=== PATIENT | female | born 2000 | race Hispanic/Latino ===

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

== ENCOUNTER 2018-12-11 10:17 | Day surgery (SDC) | payer OTHER ==
[2018-12-10 14:21] VITALS: BMI 23.6
[2018-12-11 11:12] LABS: Hemoglobin 12.9 g/dL (12.0-16.0); Mean Corpuscular HGB CONC 34.3 g/dL (32.0-36.0); Mean Corpuscular Hemoglobin 29.4 pg (25.0-35.0); Mean Corpuscular Volume 85.7 fL (78.0-98.0); Mean Platelet Volume 7.7 fL (7.4-10.4); Platelet Count 270 thou/uL (130-400); RBC Distribution Width 12.7 % (11.5-14.5); White Blood Cell (WBC) Count 7.8 thou/uL (4.8-10.8)
[2018-12-11] MEDS ORDERED: Doxycycline Hyclate 100 MG VIAL IVPB SCH (12:00)
[2018-12-11] MEDS ORDERED: Dexamethasone 20 MG/5 ML VIAL ONE (12:01)
[2018-12-11] MEDS ORDERED: PROPOFOL 200 MG/20 ML VIAL ONE (12:01)
[2018-12-11] MEDS ORDERED: Ondansetron PF 4 MG/2 ML Vial ONE (12:01)
[2018-12-11] MEDS ORDERED: Lidocaine 1% PF 5 ML VIAL ONE (12:01)
[2018-12-11] MEDS ORDERED: Fentanyl 100 MCG/2 ML VIAL ONE ×2 (12:03→13:45)
[2018-12-11] MEDS ORDERED: Promethazine HCl 25 MG/ML VIAL ONE (12:03)
[2018-12-11] MEDS ORDERED: Midazolam HCl 2 mg/2 ml Vial ONE (12:03)
[2018-12-11] MEDS ORDERED: Sodium Chloride 0.9% 100 ML ONE ×2 (12:14→12:27)
[2018-12-11] MEDS ORDERED: Tranexamic Acid 1,000 MG/10 ML VIAL ONE (12:14)
[2018-12-11] MEDS ORDERED: HYDROcodone/Acetaminophen 5/325 mg Tablet ONE (14:51)
--- NOTE | 2018-12-12 09:55 | OP ---
DATE OF PROCEDURE: 12/11/2018 PREOPERATIVE DIAGNOSIS: Missed at 11 weeks. POSTOPERATIVE DIAGNOSIS: Missed at 11 weeks. PROCEDURES PERFORMED: Suction dilation and curettage. ANESTHESIA: General LMA. FUNCTIONAL ARCHITECT SURGEON: None. ESTIMATED BLOOD LOSS: 400 mL. FINDINGS: A 10-week size uterus. Large amount of products of conception. Uterus well contracted at the conclusion of the procedure with no active bleeding from the cervix. COMPLICATIONS: None. DRAINS: None. PATHOLOGY: Products of conception. DESCRIPTION OF PROCEDURE: The patient was taken to the operating room, where general anesthesia was obtained without difficulty. The patient was prepped and draped in a sterile fashion in dorsal lithotomy position. A speculum was placed in the vagina. The anterior lip of the cervix was grasped with a single-tooth tenaculum. The cervix was then progressively dilated with August dilators. A 10 mm suction curette was assembled to the suction device and the pressure was set to a maximum until 55 mmHg. The suction curette was passed into the uterine fundus and using a circular motion, pressure was applied and products of conception were removed through the tubing. This was passed for an additional three passes until minimal amounts of products of conception were passing. The suction curette was then placed aside and a sharp curettage was performed until a gritty texture was noted in all four quadrants of the uterus. The suction curette was then again applied. An additional products of conception passed through the tubing. Sharp curette was performed an additional time on all uterine willard. At that time, the uterus was then massaged. There was minimal bleeding noted. The suction curette was passed one additional time to remove any remaining clot or products present in the uterus. There was minimal amounts of blood returned through the tubing and then the cervix was observed for any active bleeding, which there was none. At that time, all instruments removed out of the vagina. The patient tolerated the procedure well. Sponge and needle counts were correct x2. The patient was taken to recovery room in stable condition. The patient received doxycycline 100 mg as well as TXA 1 g prior to the procedure. Job ID: [id number]
== END 2018-12-11 15:45 | disposition home or self-care (01) ==
LOC: SDC 10:17
PROVIDERS: ATTEND Student in an Organized Health Care Education/Training Program
PROC: 10D17ZZ Extraction of Products of Conception, Retained, Via Natural or Artificial Opening (ICD-10-PCS; principal; 2018-12-11)
DX: O02.1 Missed abortion (principal); F17.290 Nicotine dependence, other tobacco product, uncomplicated
CPT/HCPCS: 36415; 85027; 86850; 86900; 86901; 88305; J1100; J2001; J2250; J2405; J2550; J2704; J3010; J3490